=== PATIENT | female | born 1980 | race Caucasian/White ===

== ENCOUNTER → 2017-01-31 | Outpatient (CLI) | payer OTHER ==
--- NOTE | 2017-01-31 11:50 | USB ---
Reason for exam: clinical finding. History: Family history of breast cancer. Took hormonal contraceptives for 3 years. Indicated problem(s): lump or thickening in the left breast. Physical Findings: Nurse Summary: left breast movable, papable, upper outer quadrant, 5 x 6cm, non-tender (nurse ts). US Breast LT Left breast ultrasound including all four quadrants, the retroareolar region and axilla demonstrates a 3.9 x 2.7 x 4.0cm irregular, solid, hypoechoic, vascular lesion at palpable at 2 o'clock and up to four nodes visible, largest 1.8cm at the axilla tail. These results were verbally communicated with the patient and result sheet given to the patient on 01/31/17. ASSESSMENT: Incomplete: need additional imaging evaluation, BI-RAD 0 RECOMMENDATION: Follow-up diagnostic mammogram of the left breast.
--- NOTE | 2017-01-31 11:53 | MM ---
Reason for exam: additional evaluation requested from abnormal screening. History: Family history of breast cancer. Took hormonal contraceptives for 3 years. MG Diagnostic Mammo LT w CAD CC and MLO view(s) were taken of the left breast. The breast tissue is extremely dense which could obscure a lesion on mammography. Finding: There is an ill defined obscured margin irregular mass in the upper outer quadrant, posterior position of the left breast consistent with palpable abnormality, better seen on ultrasound. These results were verbally communicated with the patient and result sheet given to the patient on 01/31/17. ASSESSMENT: Suspicious, BI-RAD 4 RECOMMENDATION: Ultrasound core biopsy of the left breast. Called Dr. Mcgee with mammographic findings and has scheduled an appointment for the patient for 02/02/17 at 12:[address] Byrne. PRELIMINARY REPORT CALLED AND FAXED TO DR. BYRNE ON 01/31/17 AT 300/TP.
== END | disposition home or self-care (01) ==
LOC: RADUSWWP 09:35
PROVIDERS: ATTEND Family Medicine
DX: N63 Unspecified lump in breast (principal)
CPT/HCPCS: 76641; G0206

== ENCOUNTER → 2017-02-09 | Day surgery (SDC) | payer OTHER ==
[~2017-02-09] MED LIST: BACITRACIN OINT 1 EACH PACKET TOPICAL ONE; LIDOCAINE 1% INJ 10MG/ML (20 ML MDV) ONE; LIDOCAINE 1%-EPI 1:100,000 20 ML VIAL ONE; SODIUM BICARB 4% 5 ML VIAL (0.48 MEQ/ML) ONE
--- NOTE | 2017-02-09 12:41 | USB ---
EXAMINATION TYPE: US biopsy breast VAD LT DATE OF EXAM: 02/09/2017 12:30 PM CLINICAL HISTORY: R92.8 Abnormal Mammogram. TECHNIQUE: Ultrasound guided core biopsy of left breast. COMPARISON: Previous ultrasound dated 01/31/2017. FINDINGS: The procedure of ultrasound guided core biopsy was explained to the patient. Benefits, alternatives, and risks were discussed. An informed consent was then obtained. The patient was placed in supine positioning for imaging and for the procedure. The overlying skin was prepped and draped in usual sterile fashion. Lidocaine buffered with bicarbonate was used as anesthetic into the skin and subcutaneous tissue up to area of concern in the left breast. Under ultrasound guidance, a 12-gauge vacuum assisted biopsy gun device was used to obtain 5 core samples. Following this, a biopsy clip was left in lesion. The patient tolerated the procedure well without any immediate complication. The patient was kept in the radiology department for short stay after the procedure and then discharged home in stable condition. A postprocedure mammogram was performed to assess clip placement. IMPRESSION: Successful, uncomplicated ultrasound guided core biopsy of area of concern in the left breast, full pathology results to follow. 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 SEE SURGICAL PATHOLOGY CANCER CASE SUMMARY AND COMMENT. Recommendation Surgical consult of the left breast. OSITO
--- NOTE | 2017-02-09 12:44 | MM ---
EXAMINATION TYPE: US biopsy breast VAD LT DATE OF EXAM: 02/09/2017 12:30 PM CLINICAL HISTORY: R92.8 Abnormal Mammogram. TECHNIQUE: Ultrasound guided core biopsy of left breast. COMPARISON: Previous ultrasound dated 01/31/2017. FINDINGS: The procedure of ultrasound guided core biopsy was explained to the patient. Benefits, alt ernatives, and risks were discussed. An informed consent was then obtained. The patient was placed in supine positioning for imaging and for the procedure. The overlying skin w as prepped and draped in usual sterile fashion. Lidocaine buffered with bicarbonate was used as anes thetic into the skin and subcutaneous tissue up to area of concern in the left breast. Under ultrasound guidance, a 12-gauge vacuum assisted biopsy gun device was used to obtain [address]. Following this, a biopsy clip was left in lesion. The patient tolerated the procedure well without any immediate complication. The patient was kept in the radiology department for short stay after the procedure and then discharged home in stable condi tion. A postprocedure mammogram was performed to assess clip placement. IMPRESSION: Successful, uncomplicated ultrasound guided core biopsy of area of concern in the left br east, full pathology results to follow.
== END ==
LOC: RADUSWWP 10:59
PROVIDERS: ATTEND Surgery
DX: C50.912 Malignant neoplasm of unspecified site of left female breast (principal); R92.8 Other abnormal and inconclusive findings on diagnostic imaging of breast
CPT/HCPCS: 88305; 88342; 88341; 19083; G0206; A4648; J2001

== ENCOUNTER → 2017-02-16 | Outpatient (CLI) | payer OTHER ==
--- NOTE | 2017-02-17 07:39 | ECHOF ---
Referral Reason:C50.412 breast ca Z01.88 pre chemo MEASUREMENTS -------- HEIGHT: 165.1 cm WEIGHT: 68.0 kg BP: 90/60 RVIDd: 2.5 cm (< 3.3) IVSd: 0.8 cm (0.6 - 1.1) LVIDd: 4.1 cm (3.9 - 5.3) LVPWd: 0.7 cm (0.6 - 1.1) IVSs: 1.2 cm LVIDs: 2.9 cm LVPWs: 1.2 cm LA Diam: 2.9 cm (2.7 - 3.8) Ao Diam: 2.6 cm (2.0 - 3.7) AV Cusp: 1.8 cm (1.5 - 2.6) MV EXCURSION: 16.920 mm (> 18.000) MV EF SLOPE: 127 mm/s (70 - 150) EPSS: 0.5 cm MV E Ovidio: 0.80 m/s MV DecT: 273 ms MV A Ovidio: 0.50 m/s MV E/A Ratio: 1.59 RAP: 5.00 mmHg RVSP: 18.93 mmHg FINDINGS -------- Sinus rhythm. This was a technically good study. The left ventricular size is normal. Left ventricular wall thickness is normal. Overall left ventricular systolic function is normal with, an EF between 55 - 60 %. The right ventricle is normal in size and function. The left atrial size is normal. The right atrium is normal in size. The aortic valve is trileaflet and appears structurally normal. There is trace mitral regurgitation. Mild tricuspid regurgitation present. Right ventricular systolic pressure is normal at < 35 mmHg. The pulmonic valve is normal. There is no pulmonic regurgitation present. The aortic root size is normal. Normal inferior vena cava with normal inspiratory collapse consistent with estimated right atrial pressure of 5 mmHg. The pericardium is normal. CONCLUSIONS -------- 1. Sinus rhythm. 2. There is trace mitral regurgitation. 3. Mild tricuspid regurgitation present. 4. Right ventricular systolic pressure is normal at < 35 mmHg. 5. The pulmonic valve is normal. 6. The aortic root size is normal. 7. Normal inferior vena cava with normal inspiratory collapse consistent with estimated right atrial pressure of 5 mmHg. 8. The pericardium is normal. 9. This was a technically good study. 10. The left ventricular size is normal. 11. Left ventricular wall thickness is normal. 12. Overall left ventricular systolic function is normal with, an EF between 55 - 60 %. 13. The right ventricle is normal in size and function. 14. The left atrial size is normal. 15. The right atrium is normal in size. 16. The aortic valve is trileaflet and appears structurally normal. RESIDENT MEDICAL OFFICER: Jennifer Robledo RDCS
== END | disposition home or self-care (01) ==
LOC: RADECHMAIN 13:52
PROVIDERS: ATTEND Internal Medicine Hematology & Oncology
DX: Z01.818 Encounter for other preprocedural examination (principal); I07.1 Rheumatic tricuspid insufficiency; I34.0 Nonrheumatic mitral (valve) insufficiency; C50.412 Malignant neoplasm of upper-outer quadrant of left female breast
CPT/HCPCS: 93306

== ENCOUNTER → 2017-02-19 | Outpatient (CLI) | payer OTHER ==
--- NOTE | 2017-02-19 09:42 | CT ---
EXAMINATION TYPE: CT ChestAbdPelvis w con DATE OF EXAM: 02/19/2017 9:05 AM COMPARISON: NONE HISTORY: Left breast carcinoma CONTRAST: Contrast enhanced CT of the chest was performed. 100cc omni 300 injected, with oral. CT Chest: LUNGS: The lungs are clear and free of infiltrate or atelectasis. No pulmonary nodule or mass is det ected. No pleural effusion or CT evidence of interstitial lung disease. MEDIASTINUM: Thoracic aorta is of normal caliber. The heart is not enlarged. No evidence for media stinal mass or adenopathy. HILAR STRUCTURES: No evidence for mass. No hilar adenopathy is appreciated. OTHER: Several enlarged left axillary lymph nodes are identified measuring up to 1.9 cm in greatest d imension. CONTRAST CT ABDOMEN AND PELVIS FINDINGS: LIVER/GB: No calcified gallstones. No space occupying hepatic lesion. Biliary tree is of normal ca liber. PANCREAS: No inflammation. No distinct mass. SPLEEN: No splenic enlargement. No lesion seen. ADRENALS: No nodule. No thickening. KIDNEYS/BLADDER: No hydronephrosis. No nephrolithiasis. No disctinct renal mass. BOWEL: Normal appendix. Normal bowel caliber. No inflammation. GENITAL ORGANS: No gross abnormality. LYMPH NODES: No greater than 1cm abdominal or pelvic lymph nodes are appreciated. AORTA: No significant abnormality. OSSEOUS STRUCTURES: No significant abnormality is seen. OTHER: No significant additional abnormality is seen. IMPRESSION: 1. Left axillary adenopathy. 2. No evidence for metastatic disease to the chest abdomen or pelvis.
== END | disposition home or self-care (01) ==
LOC: RADCTMAIN 08:17
PROVIDERS: ATTEND Internal Medicine Hematology & Oncology
DX: Z85.3 Personal history of malignant neoplasm of breast (principal); R59.0 Localized enlarged lymph nodes
CPT/HCPCS: 71260; 74177; Q9967; 78306

== ENCOUNTER → 2017-02-19 | Outpatient (CLI) | payer OTHER ==
--- NOTE | 2017-02-19 14:41 | NM ---
EXAMINATION TYPE: NM bone scan whole body DATE OF EXAM: 02/19/2017 1:49 PM COMPARISON: NONE HISTORY: Breast cancer Delayed whole-body scanning was performed following the injection of 27.5 mCi Tc 99m MDP. Images acq uired 4.5 hours post injection. FINDINGS: Nuclear medicine bone scan is normal. There is no abnormal uptake of activity. There is no scintigrap hic evidence of metastases. IMPRESSION: NORMAL NUCLEAR MEDICINE BONE SCAN.
== END | disposition home or self-care (01) ==
LOC: RADNMMAIN 08:30
PROVIDERS: ATTEND Internal Medicine Hematology & Oncology
DX: C50.919 Malignant neoplasm of unspecified site of unspecified female breast (principal)
CPT/HCPCS: 78306; A9503

== ENCOUNTER 2017-02-22 07:33 | Day surgery (SDC) | payer OTHER ==
[2017-02-19 16:21] VITALS: BMI 25.0
[~2017-02-22 07:33] MED LIST changes: -BACITRACIN OINT 1 EACH PACKET TOPICAL ONE; +DEXAMETHASONE SOD PHOSPHATE 10 MG/ML 1 ML VIAL IV ONE; +HYDROmorphone 1 MG/ML 1 ML SYRINGE IVP PRN; +LACTATED RINGERS 1,000 ML IV SCH; -LIDOCAINE 1% INJ 10MG/ML (20 ML MDV) ONE; -LIDOCAINE 1%-EPI 1:100,000 20 ML VIAL ONE; +ONDANSETRON 4 MG/2 ML VIAL IVP ONE; -SODIUM BICARB 4% 5 ML VIAL (0.48 MEQ/ML) ONE; +ceFAZolin 2 GM in SODIUM CHLORIDE 0.9% 100 ML IVPB ONE
[2017-02-22 08:15] VITALS: RESP 16; TEMP 98.4
[2017-02-22] MEDS ORDERED: LIDOCAINE 1% 20 ML VIAL (10MG/ML) FOR IV START INTRADERMA ONE (08:17)
[2017-02-22] MEDS ORDERED: fentaNYL (PF) 50 MCG/ML 2 ML AMP ONE (08:34)
[2017-02-22] MEDS ORDERED: KETAMINE 10 MG/ML 20 ML VIAL ONE (08:34)
[2017-02-22] MEDS ORDERED: MIDAZOLAM 2 MG/2 ML VIAL ONE (08:34)
[2017-02-22] MEDS ORDERED: PROPOFOL 10 MG/ML 20 ML VIAL IV ONE (08:34)
[2017-02-22] MEDS ORDERED: HEPARIN SODIUM,PORCINE 100 UNIT/ML 5 ML VIAL IV ONE (09:01)
[2017-02-22] MEDS ORDERED: IOHEXOL 350 MG/ML 50ML BOTTLE INJ ONE (09:02)
[2017-02-22] MEDS ORDERED: LIDOCAINE 1% INJ 10MG/ML (20 ML MDV) SQ ONE ×2 (09:03)
[2017-02-22] MEDS ORDERED: HEPARIN SODIUM 1,000 UNIT/ML VIAL IV ONE (09:04)
--- NOTE | 2017-02-22 09:49 | FL ---
Fluoroscopy HISTORY: Breast cancer 47 seconds fluoroscopy time supplied to the referring clinician. 1 intraoperative C-arm image docume nt the procedure. See dictated report from general surgery.
--- NOTE | 2017-02-22 09:50 | P.OP ---
Date of Procedure: 02/22/17 Preoperative Diagnosis: LEft breast cancer Postoperative Diagnosis: Left breast cancer Procedure(s) Performed: Right internal jugular mediport placement with ultrasound guidance and flouroscopy Anesthesia: MAC, local Surgeon: Darrian Curran Pathology: none sent Condition: stable Operative Findings: Patent IJ venin on the right side 8 Fr Bard mediport placed 51 seconds of flouroscpoy Description of Procedure: Informed consent was obtained from the patient after explaining the risks, benefits and potential complications including bleeding, infection, pneumothorax and inadvertent arterial and venous injury. Patient demonstrated understanding and agreed to proceed with surgery. The patient was brought to the operating room and placed in supine position with both arms tucked. A shoulder roll was placed between the scapular blades. Using SonoSite machine and ultrasound of the neck was performed to identify the internal jugular vein and the carotid artery. The internal jugular vein was compressible throughout its course . Chlorhexidine was used to prep the area followed by application of sterile drapes and Ioban dressing. A timeout was performed to verify correct patient, correct procedure and correct side. Patient was confirmed to receive perioperative IV antibiotics, heparin 5000 units subcutaneous injection and bilateral SCDs. 10 mL of local anesthesia was infiltrated along the skin incision. Using the SonoSite, the right internal jugular vein was accessed under direct vision using a Seldinger needle. Dark venous backflow was obtained and syringe was discontinued followed by insertion of guidewire. A 5 mm skin incision was made adjacent to the guidewire and the tract was dilated using a dilator sheath. The guidewire was removed. And the catheter was advanced through the sheath all the way into the atrium under fluoroscopy guidance. The sheath was then split and removed and fluoroscopy was used to confirm the position of the catheter at the junction of this SVC and the atrium.A 3 cm skin incision was made below the right clavicle and a subcutaneous pocket was developed above the pectoralis major fascia. A subcutaneous tunnel was created from the infraclavicular incision towards the right neck at the venous puncture site with a María. The other end of the catheter was pulled through into the pocket after cutting to appropriate size and confirming placement of the catheter at the SVC atrial junction was connected to the port. The port was positioned in the subcutaneous tissue out any kinks . The port was flushed easily and blood could be withdrawn without any resistance. 10 mL of saline lock followed by 5 mL of Hep-Lock was inserted.The port was secured to the pectoralis muscle fascia using 3 stitches of Prolene.The incisions were closed in 3 layers using interrupted sutures of 3-0 Vicryl followed by continuous sucuticular 4-0 Monocryl stitches.The counter incision in the neck was also closed with a 4-0 Monocryl. Dermabond skin glue was applied followed by application of Telfa and Tegaderm. The sponge, instrument and needle count were correct 2.Patient tolerated the procedure well and was taken to post anesthesia care unit in stable condition A chest x-ray was taken in the post anesthesia care unit. Chest x-ray did not reveal any pneumothorax . The catheter tip was at the superior vena cava and did not have any kinks or folds
[2017-02-22] MEDS ORDERED: IBUPROFEN 200 MG TAB PO ONE (10:03)
--- NOTE | 2017-02-22 10:03 | XR ---
EXAMINATION TYPE: XR chest 1V confirm line [facility] DATE OF EXAM: 02/22/2017 9:59 AM COMPARISON: NONE HISTORY: Status post central venous catheter placement TECHNIQUE: Single frontal view of the chest is obtained. FINDINGS: There is no focal air space opacity, pleural effusion, or pneumothorax seen. The cardiac silhouette size is within normal limits. Right-sided central venous catheter is present, distal tip a t the cavoatrial junction. The osseous structures are intact. IMPRESSION: No evident complication status post central venous catheter placement.
[2017-02-22 10:41] VITALS: BP 111/68; PULSE 74
== END 2017-02-22 10:53 | disposition home or self-care (01) ==
LOC: OR 07:33
PROVIDERS: ATTEND Surgery
DX: C50.919 Malignant neoplasm of unspecified site of unspecified female breast (principal); R59.0 Localized enlarged lymph nodes
CPT/HCPCS: 81025; 77001; 36561; 76937; C1788; J2250; J1642; J1100; J0690; J2405; J2001; J3010; J1644; J2704; Q9967

== ENCOUNTER → 2017-03-10 | Outpatient (CLI) | payer OTHER ==
--- NOTE | 2017-03-10 14:08 | PE ---
Nuclear medicine PET/CT HISTORY: Malignant neoplasm upper outer quadrant, left breast carcinoma Patient received 14.5 mCi F-18 FDG intravenously. Delayed scanning was performed from the skull base to the mid thighs. Localization and attenuation correction CT scan was performed. Correlation to chest abdomen pelvis CT 19 February 2017 Neck and chest: The left axilla shows multiple enlarged lymph nodes as on prior CT scan with associat ed hypermetabolic uptake, SUV as high as 7.3. Mass in the outer aspect of the left breast upper porti on is irregular poorly defined, SUV 11.3. There is an internal mammary lymph node suspected at the le nichelle of the manubrium on the left measuring 11 to 12 mm, SUV approximately 3. Right-sided port shows t he catheter coursing to the cavoatrial junction level. Abdomen pelvis: Unremarkable, no suspicious hypermetabolic uptake Osseous structures within normal limits IMPRESSION: Internal mammary adenopathy, axillary adenopathy and findings compatible with patient's l eft breast carcinoma.
== END | disposition home or self-care (01) ==
LOC: RADPETMAIN 08:02
PROVIDERS: ATTEND Radiology Radiation Oncology
DX: C50.412 Malignant neoplasm of upper-outer quadrant of left female breast (principal); Z17.1 Estrogen receptor negative status [ER-]; R59.9 Enlarged lymph nodes, unspecified
CPT/HCPCS: 78815; A9552

== ENCOUNTER → 2017-10-03 | Outpatient (CLI) | payer OTHER ==
--- NOTE | 2017-10-03 15:39 | MR ---
EXAMINATION TYPE: MR brain wo/w con DATE OF EXAM: 10/03/2017 COMPARISON: CT brain dated 09/30/2017 HISTORY: Cluster headaches TECHNIQUE: Multiplanar, multisequence images of the brain and brainstem is performed without and with IV contras t, utilizing 6 mL intravenous Gadavist . FINDINGS: Diffusion weighted images demonstrate no evidence of a recent infarct. Complex, peripherally enhancin g left paranasal sinus mucosal thickening is seen with complete opacification of the left maxillary s inus restricted diffusion. Again ostiomeatal complex occlusion should be considered. Mucosal thickeni ng extends into the ethmoid and frontal sinuses. No extension into the epidural space or erosion thro ugh the calvarium. Sphenoid sinuses and mastoid air cells are well aerated. Smaller mucosal retention cysts are seen within the posterior nasopharynx. There is no extra-axial fluid collection or signifi cant white matter signal abnormality. The ventricular system and cisternal spaces are normal in size and appearance. The brain volume is age appropriate. There are 2 foci of T2/FLAIR hyperintensity within the right frontal lobe measuring 2 mm on axial inv ersion recovery fat sat sequence image 16 and 2 mm on image 22. Midline structures demonstrate normal morphology. Incidental note is made of a partially empty sella turcica. The craniocervical junction appears within normal limits. The dural venous sinuses appear patent. The right vertebral artery is diminutive with dominance of the left vertebral artery. Basilar artery is unremarkable. There is a 4 x 4 x 3 mm rounded focus of enhancement without corresponding T2 or precontrast T1 signa l abnormality seen on axial fat sat T1 postcontrast image 6, coronal image 27, and sagittal image 88 within the right cerebellar hemisphere. No other abnormal enhancement is seen. Possible decreased sig nal on inversion recovery is seen focally measuring 2 mm on image 5 of axial FLAIR sequence. IMPRESSION: 1. 4 x 4 by 3 mm rounded focus of abnormal enhancement within the right cerebellar hemisphere without surrounding vasogenic edema or T2 signal abnormality. This could represent a small vascular anomaly, active demyelinating plaque, or low-grade neoplasm. Short-term follow-up is recommended to assess fo r interval growth. No additional foci of abnormal intracranial enhancement are seen. 2. 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 Ostiomeatal occlusion is likely and there is restricted diffu jm and peripheral enhancement of the complete opacification of the left maxillary sinus indicating complexity an acuity. Fungal etiology should also be considered. 3. Two punctate right frontal foci of nonspecific white matter change. This can be seen in microangio lacy, migraines or demyelinating disease.
== END | disposition home or self-care (01) ==
LOC: RADMRIMAIN 12:07
PROVIDERS: ATTEND Radiology Radiation Oncology
DX: R51 Headache (principal); C50.412 Malignant neoplasm of upper-outer quadrant of left female breast; M54.2 Cervicalgia; Z17.1 Estrogen receptor negative status [ER-]; R11.2 Nausea with vomiting, unspecified
CPT/HCPCS: 70553

== ENCOUNTER → 2017-11-28 | Outpatient (CLI) | payer OTHER ==
[2017-11-28 11:48] LABS: Blood Urea Nitrogen 22 mg/dL (7-17)
--- NOTE | 2017-11-28 13:34 | CT ---
EXAMINATION TYPE: CT ChestAbdPelvis w con DATE OF EXAM: 11/28/2017 INDICATION: Patient has no complaints at time of study. Follow up study for known breast CA. COMPARISON: 02/19/2017 CT DLP: 491.2 mGycm CONTRAST: Performed with Oral Contrast and with IV Contrast, patient injected with 100 mL of Omnipaque 300. TECHNIQUE: Axial images at 5 mm thick sections. Reconstructed images in the coronal plane. Delayed images through the kidneys. FINDINGS: CT CHEST: Portion of the thyroid visualized is normal. No suspicious lung nodules or focal infiltrates are present. No enlarged mediastinal or hilar adenopathy is evident. The ascending aorta diameter at the level of the main pulmonary artery is 2.8 cm. The main pulmonary artery diameter at the bifurcation is 2.[address] ABDOMEN: Liver: Normal Spleen: Normal Pancreas: Normal Adrenal glands: The adrenal glands are normal. Gallbladder: Normal Kidneys: No masses are evident. No hydronephrosis is present. No cysts are present. Delayed images were obtained through the kidneys, which remain unremarkable. Aorta: Normal Inferior vena cava: Normal. CT PELVIS: Loops of bowel within the abdomen and pelvis are normal. There are loops of bowel which are incom pletely distended or lack oral contrast limiting their evaluation. Appendix: Normal as visualized. Urinary bladder: Decompressed with limited evaluation. Genitourinary structures: Uterus appears unremarkable. Adnexal regions are clear. Osseous structures: There are lytic areas within the medial iliac wings bilaterally at sacroiliac dionne nts. There is loss of cortex margins bilaterally. Findings are suspicious for metastatic disease. Ser ies 3 image 79 bone windows. This is an interval finding. There are some lytic areas within the L3-L4 vertebral bodies suspicious for metastatic disease. Lytic lesions within the mid thoracic spine, T9 region. This is an interval finding There is a rib fracture on the right, series 3 image 22. This cou ld be a pathologic fracture. IMPRESSIONS: 1. Lytic lesions within the iliac wings posterior medially, above the right acetabulum within the L3 and L4 vertebral levels without collapse and with suspected pathologic fractures within the mid thora cic spine and within the compressed T9 levels suspicious for osseous metastatic disease. A Yellow message has been communicated to Jayesh Self MD via the [employer] Critical Result system on 11/28/2017 1:31 PM, Message ID [id number].
== END ==
LOC: RADCTMAIN 11:07
PROVIDERS: ATTEND Internal Medicine Hematology & Oncology
DX: M89.8X8 Other specified disorders of bone, other site (principal); C79.32 Secondary malignant neoplasm of cerebral meninges; C50.412 Malignant neoplasm of upper-outer quadrant of left female breast
CPT/HCPCS: 82565; 84520; 71260; 74177; 36415; Q9967

== ENCOUNTER → 2018-01-11 | Outpatient (CLI) | payer OTHER ==
--- NOTE | 2018-01-12 00:51 | MR ---
EXAMINATION TYPE: MR brain wo/w con DATE OF EXAM: 01/11/2018 COMPARISON: 10/03/2017 HISTORY: Metastatic brain disease TECHNIQUE: Multiplanar, multisequence images of the brain and brainstem is performed without and with IV contras t, utilizing 6 mL intravenous Gadavist . FINDINGS: On the T2 and FLAIR images there is a 3.5 cm new area of increased signal in the right anterior tempo ral lobe consistent with edema. There is peripheral enhancement. There is mild leptomeningeal enhancement along the cerebral falx. This appears decreased compared to old exam. There is a linear tract in the right parietal lobe that apparently is a medication catheter extending to the right lateral ventricle from the right posterior frontal region. There are scattered foci of increased signal in the white matter in both cerebral hemispheres on the T2 and FLAIR images. There i s a new 6 mm focus in the white matter right frontal lobe. There is a 5 mm focus in the right parieta l lobe. The brainstem appears intact. There is no mass effect. I see no sign of intracranial hemorrha ge. IMPRESSION: Compared to the last exam There is clearing of the inflammatory changes in the left maxillary sinus. There is a new large area of edema in the right anterior temporal lobe suspicious for metastatic dise ase. There are increased scattered white matter foci in the right frontal lobe right parietal lobe compare d to old exam. There is some mild leptomeningeal thickening in the right frontal lobe convexity on the old exam that is not definitely seen on today's exam. surgery catheter in the right frontal lobe that should be correlated with the surgical history. There is some mild leptomeningeal enhancement along the cerebral falx that appears decreased slightly compared to old exam.
== END | disposition home or self-care (01) ==
LOC: RADMRIMAIN 16:58
PROVIDERS: ATTEND Radiology Radiation Oncology
DX: C79.31 Secondary malignant neoplasm of brain (principal); G93.6 Cerebral edema; C50.412 Malignant neoplasm of upper-outer quadrant of left female breast; Z98.2 Presence of cerebrospinal fluid drainage device
CPT/HCPCS: 70553; A9581

== ENCOUNTER → 2018-01-18 | Outpatient (CLI) | payer OTHER ==
--- NOTE | 2018-01-18 23:20 | MR ---
EXAMINATION TYPE: MR cspine/tspine wo/w con DATE OF EXAM: 01/18/2018 COMPARISON: NONE HISTORY: Breast ca 2017, Secondary malignant neoplasm of bone TECHNIQUE: Multiplanar, multisequence images of the lumbar spine is performed without and with IV contrast, util izing 6 mL intravenous Gadavist FINDINGS: Cervical spine Vertebra have normal alignment. Disc spaces are fairly normal. There is a mottled signal pattern thro ughout the cervical vertebral bodies with abnormal decreased signal on T1 and T2 images. Cervical spi nal cord has normal signal pattern. There is no spinal stenosis. There is a posterior mild disc bulge at C5-6. There is no compression fracture. There is a mottled enhancement pattern of the cervical ve rtebra with contrast. Thoracic spine Vertebra have normal alignment. There is no significant disc space narrowing. There is 40% compressio n deformity of T9 vertebral body. There is a mottled signal pattern throughout all of the thoracic ve rtebra. Thoracic spinal cord has normal signal pattern. There is no spinal stenosis. Contrast images show patchy areas of mild enhancement in the thoracic vertebra. On the T1 images there is abnormal de creased signal extending into multiple thoracic pedicles. CONCLUSION: Extensive mottled abnormal signal pattern throughout the thoracic and cervical vertebra extending int o the pedicles and consistent with diffuse metastatic disease. This is a significant change compared to last exam. There is new T9 compression fracture compared to old exam.
== END | disposition home or self-care (01) ==
LOC: RADMRIMAIN 15:18
PROVIDERS: ATTEND Radiology Radiation Oncology
DX: C50.412 Malignant neoplasm of upper-outer quadrant of left female breast (principal); M48.54XA Collapsed vertebra, not elsewhere classified, thoracic region, initial encounter for fracture; R93.7 Abnormal findings on diagnostic imaging of other parts of musculoskeletal system; C79.31 Secondary malignant neoplasm of brain
CPT/HCPCS: 72156; 72157; A9581